=== PATIENT | male | born 1960 | race Hispanic/Latino ===

== ENCOUNTER 2016-09-30 01:46 | Emergency (ER) | payer OTHER ==
[2016-09-30 02:03] VITALS: BP 148/96; PULSE 74; RESP 16; TEMP 98.2; O2SAT 97; BMI 22.5
[2016-09-30] MEDS ORDERED: DiphenhydrAMINE 50 mg/ml Inj IVP STA (02:06)
[2016-09-30] MEDS ORDERED: Sodium Chloride 0.9% 1,000 ML IV STA (02:07)
[2016-09-30] MEDS ORDERED: DiphenhydrAMINE 50 mg/ml Inj ONE (02:14)
--- NOTE | 2016-09-30 02:46 | ED PDOC ---
HPI: General Adult Time Seen by Provider: 09/30/16 01:56 Chief Complaint (Nursing): Abnormal Skin Integrity Chief Complaint (Provider): rash History Per: Patient History/Exam Limitations: no limitations Onset/Duration Of Symptoms: Hrs Have you had recent travel within the past 21 days to any of the following countries: [place], [place], [place] or [place]?: No Current Symptoms Are (Timing): Still Present Additional Complaint(s): 56yo male presents to the ED with c/o pruritic rash that began this morning on wrists and then generalized to arms, abdomen, back, and thighs. Patient states he was in [place] in [place] and [place] and only new exposure was to plant leaf he cut open and spread gel on skin. No difficulty breathing, respiratory distress, throat swelling. Past Medical History Reviewed: Historical Data, Nursing Documentation, Vital Signs Vital Signs: Last Vital Signs Temp 98.2 F 09/30/16 02:00 Pulse 74 09/30/16 02:00 Resp 16 09/30/16 02:00 BP 148/96 H 09/30/16 02:00 Pulse Ox 97 09/30/16 02:50 - Medical History PMH: Hypercholesterolemia - Surgical History Surgical History: No Surg Hx - Family History Family History: States: No Known Family Hx - Home Medications Home Medications: Ambulatory Orders Medication Instructions Recorded Desloratadine 5 mg PO DAILY #20 odt 09/30/16 DiphenhydrAMINE [Benadryl] 50 mg PO BID #20 cap 09/30/16 predniSONE [predniSONE Tab] 40 mg PO DAILY 3 Days 09/30/16 - Allergies Allergies/Adverse Reactions: Allergies Allergy/AdvReac Type Severity Reaction Status Date / Time No Known Allergies Allergy Verified 09/30/16 02:00 Review of Systems ROS Statement: Except As Marked, All Systems Reviewed And Found Negative ENT: Negative for: Throat Swelling Respiratory: Negative for: Shortness of Breath Skin: Positive for: Rash Physical Exam - Reviewed Nursing Documentation Reviewed: Yes Vital Signs Reviewed: Yes - Physical Exam Appears: Positive for: Well, No Acute Distress Head Exam: Positive for: ATRAUMATIC, NORMAL INSPECTION, NORMOCEPHALIC Skin: Positive for: Warm, Dry, Rash (diffuse papular rash with blanches ) Eye Exam: Positive for: Normal appearance, EOMI, PERRL ENT: Positive for: Normal ENT Inspection, Pharynx Is (clear ), Other (no soft tissue swelling ) Neck: Positive for: Normal, Painless ROM, Supple Cardiovascular/Chest: Positive for: Regular Rate, Rhythm. Negative for: Murmur , Tachycardia Respiratory: Positive for: Normal Breath Sounds. Negative for: Wheezing, Respiratory Distress Gastrointestinal/Abdominal: Positive for: Normal Exam, Soft. Negative for: Tenderness Back: Positive for: Normal Inspection Extremity: Positive for: Normal ROM. Negative for: Deformity, Swelling Neurologic/Psych: Positive for: Alert, Oriented - ECG O2 Sat by Pulse Oximetry: 97 Pulse Ox Interpretation: Normal (RA) Medical Decision Making Medical Decision Makin: Impression: allergic dermatitis/urticaria without respiratory involvement Plan: Benadryl 50mg IVP, Pepcid 20mg IVP, solu-medrol 125mg IVP, IVF reassess 315: Continues without respiratory involvement, redness is improving. Will d/c home - return precautions given, espeically for resp involvement. Scribe Attestation: Documented by Annamarie Davey acting as a scribe for Jc Hartman MD. Provider Scribe Attestation: All medical record entries made by the Scribe were at my direction and personally dictated by me. I have reviewed the chart and agree that the record accurately reflects my personal performance of the history, physical exam, medical decision making, and the department course for this patient. I have also personally directed, reviewed, and agree with the discharge instructions and disposition. Disposition - Clinical Impression Clinical Impression: Urticaria - Disposition Referrals: [facility] [Outside] Disposition Time: 03:15 Condition: IMPROVED Prescriptions: Desloratadine 5 mg PO DAILY #20 odt DiphenhydrAMINE [Benadryl] 50 mg PO BID #20 cap predniSONE [predniSONE Tab] 40 mg PO DAILY 3 Days Instructions: Urticaria (ED), General Allergic Reaction (ED)
== END 2016-09-30 03:42 | disposition home or self-care (01) ==
LOC: H.ER 01:46
DX: L50.9 Urticaria, unspecified (principal)